=== PATIENT | male | born 2000 ===

== ENCOUNTER 2021-06-11 04:09 | Emergency (ER) | payer SELFPAY ==
[2021-06-11 05:53] LABS: Basophils % (Auto) 0.5 % (0.0-1.8); Eosinophils # (Auto) 0.2 K/mm3 (0.0-0.4); Eosinophils % (Auto) 3.6 % (0.0-4.3); Hematocrit 45.1 % (35.5-45.6); Hemoglobin 14.7 gm/dl (11.8-15.2); Lymphocytes # (Auto) 1.9 K/mm3 (1.2-5.4); Lymphocytes % (Auto) 29.1 % (13.4-35.0); Mean Corpuscular HGB Conc 33 % (32-34); Mean Corpuscular Volume 95 fl (84-94); Monocytes # (Auto) 0.5 K/mm3 (0.0-0.8); Monocytes % (Auto) 7.4 % (0.0-7.3); Platelet Count 163 K/mm3 (140-440); Red Blood Count 4.76 M/mm3 (3.65-5.03); Red Cell Distribution Width 13.3 % (13.2-15.2)
[2021-06-11 06:08] LABS: BUN/Creatinine Ratio 14; Blood Urea Nitrogen 17 mg/dL (9-20); Calcium 9.4 mg/dL (8.4-10.2); Hemolysis Index 11
--- NOTE | 2021-06-11 08:32 | Emergency Department Report ---
ED General Adult HPI - General Chief complaint: Psych Stated complaint: BODYACHES/MH EVAL PUI?: Yes Time Seen by Provider: 06/11/21 07:38 Source: patient, EMS ( EMS documentation not available at time of chart dictation ), RN notes reviewed Mode of arrival: Stretcher Limitations: No Limitations - History of Present Illness Initial comments: This is a 20-year-old gentleman who presents to the ER today with a complaint of body aches. He denies headache, neck pain, chest pain, abdominal pain, shortness of breath, urinary symptoms. He denies homicidality, suicidality, cough, overdose, access to guns or firearms, he endorses nonspecific painless hallucinations -: Gradual Consistency: constant Improves with: none Worsens with: none Associated Symptoms: denies other symptoms - Related Data Previous Rx's Medication Instructions Recorded Last Taken Type risperiDONE [RisperDAL] 1 mg PO BID 30 Days #60 06/11/21 Unknown Rx Allergies Allergy/AdvReac Type Severity Reaction Status Date / Time No Known Allergies Allergy Unverified 06/11/21 04:57 ED Review of Systems ROS: Stated complaint: BODYACHES/MH EVAL Other details as noted in HPI Comment: All other systems reviewed and negative Musculoskeletal: myalgia Psychiatric: as per HPI. denies: homicidal thoughts, suicidal thoughts ED Past Medical Hx - Past Medical History Previous Medical History?: Yes Hx Psychiatric Treatment: Yes (Psychosis, schizophrenia) - Surgical History Past Surgical History?: No - Social History Smoking Status: Never Smoker Substance Use Type: None - Medications Home Medications: Home Medications Medication Instructions Recorded Confirmed Last Taken Type risperiDONE [RisperDAL] 1 mg PO BID 30 Days #60 06/11/21 Unknown Rx ED Physical Exam - General Limitations: No Limitations General appearance: alert, in no apparent distress - Head Head exam: Present: atraumatic, normocephalic - Eye Eye exam: Present: normal appearance, EOMI. Absent: nystagmus - ENT ENT exam: Present: normal exam, normal orophraynx, mucous membranes moist, normal external ear exam - Neck Neck exam: Present: normal inspection, full ROM. Absent: tenderness, meningismus - Respiratory Respiratory exam: Present: normal lung sounds bilaterally. Absent: respiratory distress, wheezes, rales, rhonchi, stridor, decreased breath sounds - Cardiovascular Cardiovascular Exam: Present: regular rate, normal rhythm, normal heart sounds. Absent: bradycardia, tachycardia, irregular rhythm, systolic murmur, diastolic murmur, rubs, gallop - GI/Abdominal GI/Abdominal exam: Present: soft. Absent: distended, tenderness, guarding, rebo und, rigid, pulsatile mass - Rectal Rectal exam: Present: deferred - Extremities Exam Extremities exam: Present: normal inspection, full ROM, other (2+ pulses noted in the bilateral upper and lower extremities. There is no palpable cord. negative Homans sign. Muscular compartments are soft. The pelvis is stable.). Absent: pedal edema, calf tenderness - Back Exam Back exam: Present: normal inspection, full ROM. Absent: tenderness, CVA tenderness (R), CVA tenderness (L), paraspinal tenderness, vertebral tenderness - Neurological Exam Neurological exam: Present: alert, oriented X3, other (No facial droop. Tongue midline. Extraocular movements intact bilaterally. Facial sensation intact to light touch in V1, V2, V3 distribution bilaterally. 5 and a 5 strength in 4 extremities. Sensation intact to light touch in 4 extremities.). Absent: motor sensory deficit - Psychiatric Psychiatric exam: Present: flat affect. Absent: homicidal ideation, suicidal ideation - Skin Skin exam: Present: warm, dry, intact, normal color. Absent: rash ED Course Vital Signs 06/11/21 06/11/21 06/11/21 04:57 05:08 10:25 Temperature 98 F Pulse Rate 87 Respiratory 18 Rate Blood Pressure 138/78 Blood Pressure [Right] O2 Sat by Pulse 100 21 L 99 Oximetry 06/11/21 06/11/21 06/11/21 10:34 11:00 11:35 Temperature 97.6 F 98.2 F 98.2 F Pulse Rate 125 H 72 68 Respiratory 16 16 16 Rate Blood Pressure Blood Pressure 169/117 148/98 114/72 [Right] O2 Sat by Pulse 100 99 99 Oximetry 06/11/21 12:22 Temperature 98.6 F Pulse Rate 71 Respiratory 18 Rate Blood Pressure Blood Pressure 128/80 [Right] O2 Sat by Pulse 99 Oximetry - Reevaluation(s) Reevaluation #1: 06/11/21 10:22 Differential diagnosis, including but not limited to: Behavioral health screening, medical screening, generalized body aches Assessment and plan: 20-year-old gentleman, who is afebrile, with reassuring vital signs, clinically sober, with a GCS of 15 (saturating at 100% on room air, documented sat of 21% is an error), presenting to the ER today with nonspecific myalgias, and nonspecific hallucinations. Physical exam benign, unremarkable, and noncontributory. Lung sounds clear, muscular compartments soft, on initial assessment, resting comfortably, on stretcher, and in no acute distress. Awake, alert, oriented, cooperative, not homicidal or suicidal, and exhibits decision-making capacity. Does not meet criteria for 1013 hold or involuntary confinement at this time. Weightbearing as tolerated, Tylenol, Motrin, as needed, outpatient follow-up. ED Medical Decision Making - Lab Data Result diagrams: 06/11/21 05:24 06/11/21 05:24 Vital Signs 06/11/21 06/11/21 04:57 05:08 Temperature 98 F Pulse Rate 87 Respiratory 18 Rate Blood Pressure 138/78 O2 Sat by Pulse 100 21 L Oximetry Lab Results 06/11/21 06/11/21 06/11/21 Range/Units 05:24 05:24 05:24 WBC (4.5-11.0) K/mm3 RBC (3.65-5.03) M/mm3 Hgb (11.8-15.2) gm/dl Hct (35.5-45.6) % MCV (84-94) fl MCH (28-32) pg MCHC (32-34) % RDW (13.2-15.2) % Plt Count (140-440) K/mm3 Lymph % (Auto) (13.4-35.0) % Walker % (Auto) (0.0-7.3) % Eos % (Auto) (0.0-4.3) % Baso % (Auto) (0.0-1.8) % Lymph # (Auto) (1.2-5.4) K/mm3 Walker # (Auto) (0.0-0.8) K/mm3 Eos # (Auto) (0.0-0.4) K/mm3 Baso # (Auto) (0.0-0.1) K/mm3 Seg Neutrophils % (40.0-70.0) % Seg Neutrophils # (1.8-7.7) K/mm3 Sodium 141 (137-145) mmol/L Potassium 4.3 (3.6-5.0) mmol/L Chloride 103.1 (98-107) mmol/L Carbon Dioxide 24 (22-30) mmol/L Anion Gap 18 mmol/L BUN 17 (9-20) mg/dL Creatinine 1.2 (0.8-1.3) mg/dL Estimated GFR > 60 ml/min BUN/Creatinine Ratio 14 % Glucose 86 (75-100) mg/dL Calcium 9.4 (8.4-10.2) mg/dL Salicylates < 0.3 L (2.8-20.0) mg/dL Acetaminophen 5.0 L (10.0-30.0) ug/mL Plasma/Serum Alcohol (0-0.07) % 06/11/21 06/11/21 Range/Units 05:24 05:24 WBC 6.6 (4.5-11.0) K/mm3 RBC 4.76 (3.65-5.03) M/mm3 Hgb 14.7 (11.8-15.2) gm/dl Hct 45.1 (35.5-45.6) % MCV 95 H (84-94) fl MCH 31 (28-32) pg MCHC 33 (32-34) % RDW 13.3 (13.2-15.2) % Plt Count 163 (140-440) K/mm3 Lymph % (Auto) 29.1 (13.4-35.0) % Walker % (Auto) 7.4 H (0.0-7.3) % Eos % (Auto) 3.6 (0.0-4.3) % Baso % (Auto) 0.5 (0.0-1.8) % Lymph # (Auto) 1.9 (1.2-5.4) K/mm3 Walker # (Auto) 0.5 (0.0-0.8) K/mm3 Eos # (Auto) 0.2 (0.0-0.4) K/mm3 Baso # (Auto) 0.0 (0.0-0.1) K/mm3 Seg Neutrophils % 59.4 (40.0-70.0) % Seg Neutrophils # 3.9 (1.8-7.7) K/mm3 Sodium (137-145) mmol/L Potassium (3.6-5.0) mmol/L Chloride (98-107) mmol/L Carbon Dioxide (22-30) mmol/L Anion Gap mmol/L BUN (9-20) mg/dL Creatinine (0.8-1.3) mg/dL Estimated GFR ml/min BUN/Creatinine Ratio % Glucose (75-100) mg/dL Calcium (8.4-10.2) mg/dL Salicylates (2.8-20.0) mg/dL Acetaminophen (10.0-30.0) ug/mL Plasma/Serum Alcohol < 0.01 (0-0.07) % Critical care attestation.: If time is entered above; I have spent that time in minutes in the direct care of this critically ill patient, excluding procedure time. ED Disposition Clinical Impression: Body aches, Encounter for behavioral health screening, Encounter for medical screening examination Disposition: 01 HOME / SELF CARE / HOMELESS Is pt being admited?: No Does the pt Need Aspirin: No Condition: Good Additional Instructions: Patient may take [id number] Tylenol or ibuprofen as needed for physical pain reviewed please drink plenty of fluids, may alternate ice packs and heat packs as needed for physical pain. Follow-up with outpatient resources that are provided to the patient. Follow-up with a psychiatrist within the next week. Follow-up with a primary care doctor within the next month. Please return to the emergency room right away with new pain, worsened pain, migration of pain, projectile vomiting, change in mental status, confusion, inability tolerate liquid feeds, new, worsened or different symptoms not present on the initial emergency room evaluation Prescriptions: risperiDONE [RisperDAL] 1 mg PO BID 30 Days #60 Referrals: [facility] [Outside] - 3-5 Days [facility] [Outside] - 3-5 Days
--- NOTE | 2021-06-11 10:44 | Consultation ---
History of Present Illness - Reason for Consult Consult date: 06/11/21 Reason for consult: mental health evaluation - History of Present Psychiatric Illness The patient is a 20 year old male with history of schizophrenia. The patient is calm, alert and oriented x3. He states he came" for my psych ad body ache." He states he is compliant with psychotropic medications. The patient denies any current suicidal/homicidal ideation and denies hallucinations. PAST PSYCHIATRIC HISTORY: Diagnose:Schizophrenia Suicide attempts or Self-harm behavior: Denies Prior psychiatric hospitalizations: Yes Substance Abuse history: marijuana Previous psychiatric medications tried: Risperidone Outpatient treatment: Unknown PAST MEDICAL HISTORY: unknown Family Psychiatric History: None reported or documented SOCIAL HISTORY Marital Status: Single Living Arrangements: Lives with mother Employment Status: Unknown Access to guns/weapons: Denies Education:College History of Abuse: Denies Legal History: Denies REVIEW OF SYSTEMS Constitutional: Negative for weight loss ENT: Negative for stridor Respiratory: Negative for cough or hemoptysis All other systems reviewed and are negative MENTAL STATUS EXAMINATION General Appearance and Behavior: Age appropriate, good hygiene, wearing appropriate clothes. cooperative Cooperation: Cooperative Psychomotor Behavior: Psychomotor normal Mood:OK Affect and affective range: Congruent Thought Process: Goal directed Thought Content: Reality oriented Speech: Normal Suicidal Ideation: Denies Homicidal Ideation: Denies Hallucinations: Denies Delusions: None elicited Impulse Control: Normal Insight and Judgment: Limited insight and judgment Memory: Limited Attention: attentive Orientation: a/o x 3 Assessment (1) Schizophrenia Treatment Plan DC 1013 Risperidone 1 mg po BID Sitter: per primary Medical: per primary Disposition: Do not recommend acute psychiatric inpatient treatment. Civil Preparedness Officer will provide patient with psychiatric outpatient resources. Will sign off. Thanks Case staffed with Dr. Schwartz Medications and Allergies Medications and Allergies Allergies Allergy/AdvReac Type Severity Reaction Status Date / Time No Known Allergies Allergy Unverified 06/11/21 04:57 Home Medications Medication Instructions Recorded Confirmed Last Taken Type risperiDONE [RisperDAL] 1 mg PO BID 30 Days #60 06/11/21 Unknown Rx Mental Status Exam - Vital signs Last Vital Signs Temp 97.6 F 06/11/21 10:34 Pulse 125 H 06/11/21 10:34 Resp 16 06/11/21 10:34 BP 169/117 06/11/21 10:34 Pulse Ox 100 06/11/21 10:34 Results Result Diagrams: 06/11/21 05:24 06/11/21 05:24 Abnormal lab results 06/11/21 06/11/21 06/11/21 Range/Units 05:24 05:24 05:24 MCV 95 H (84-94) fl [place] % (Auto) 7.4 H (0.0-7.3) % Salicylates < 0.3 L (2.8-20.0) mg/dL Acetaminophen 5.0 L (10.0-30.0) ug/mL All other labs normal.
[2021-06-11] MEDS ORDERED: ALPRAZolam 0.5 MG TAB PO ONE (10:51)
--- NOTE | 2021-06-11 11:36 | Event Note ---
Date: 06/11/21 vss, no distress medically cleared assessed by psych awaiting discharge
[2021-06-11 12:25] VITALS: BP 128/80
== END 2021-06-11 12:25 | disposition home or self-care (01) ==
LOC: ED 04:09
DX: Z13.30 Encounter for screening examination for mental health and behavioral disorders, unspecified (principal); M79.18 Myalgia, other site; F20.9 Schizophrenia, unspecified
CPT/HCPCS: 36415; 80048; 80320; 85025; 99284; G0480